=== PATIENT | male | born 1995 | race Caucasian/White ===

== ENCOUNTER 2021-04-17 16:05 | Emergency (ER) | payer SELFPAY ==
--- NOTE | 2021-04-17 16:14 | ED.GENADULT ---
HPI - General Adult General Chief complaint: Ear Stated complaint: Lt Ear Pain Time Seen by Provider: 04/17/21 16:15 Source: patient Mode of arrival: ambulatory Limitations: no limitations History of Present Illness HPI narrative: 26-year-old male patient presents to the [facility] with complaints of left ear pain for the past 2 weeks since going swimming. Patient states he has had a little bit of discharge from the ear. Patient states that it typically hurts worse when he is laying down at night. Denies fevers, body aches or chills. Related Data Allergies Allergy/AdvReac Type Severity Reaction Status Date / Time Penicillins Allergy Unknown Other Verified 04/17/21 16:22 Review of Systems Review of Systems: CONSTITUTIONAL: Denies fever, chills, or sweats. EYES: Denies visual changes, redness, or discharge. ENT: Denies rhinorrhea, congestion, sore throat, positive left ear pain CARDIOVASCULAR: Denies chest pain, palpitations, or edema. RESPIRATORY: Denies cough or dyspnea. GASTROINTESTINAL: Denies abdominal pain, nausea, vomiting, or diarrhea. GENITOURINARY: Denies dysuria or hematuria. SKIN: Denies rash or itching. MUSCULOSKELETAL: Denies back pain, joint pain, or myalgia. NEUROLOGIC: Denies headache, numbness, or weakness. PSYCHIATRIC: Denies anxiety or depression. [facility] Past Medical History Medical History (Updated 04/17/21 @ 16:37 by DORIAN Wilson) No significant past medical history Comments At the time of my signature I agree with nursing past medical history, surgical, social, and family history. There is no relevant family history pertinent to the presenting complaint. Exam Narrative: GENERAL: Well-appearing, well-nourished, and in no acute distress. HEAD: Normocephalic, atraumatic. EYES: PERRLA and EOMI. ENT: Nares clear, no rhinorrhea or epistaxis. Mucous membranes moist. The left ear does have some pus noted to the canal with irritation erythema to the sides of the canal. NECK: Supple. No lymphadenopathy CHEST: Clear to auscultation. No respiratory distress. HEART: Regular rate and rhythm. No murmur heard. Normal peripheral pulses. ABDOMEN: Soft, nontender, nondistended, normal active bowel sounds. EXTREMITIES: Normal range of motion. No edema. SKIN: Warm, dry, no rash. NEURO: No focal deficits. Alert and oriented x3. Course Vital Signs Vital signs: Vital Signs Temperature 36.9 C 04/17/21 16:15 Pulse Rate 110 H 04/17/21 16:15 Respiratory Rate 04/17/21 16:15 Blood Pressure 149/81 H 04/17/21 16:15 Pulse Oximetry 100 04/17/21 16:15 Temperature 36.9 C 04/17/21 16:15 Pulse Rate 110 H 04/17/21 16:15 Respiratory Rate 04/17/21 16:15 Blood Pressure 149/81 H 04/17/21 16:15 Pulse Oximetry 100 04/17/21 16:15 Vital signs reviewed The patient has been informed that they may have pre-hypertension or Hypertension based on a BP reading in the department. I recommend that the patient call the primary care provider listed on their discharge instructions or a physician of their choice this week to arrange follow up for further evaluation of possible pre-hypertension or Hypertension Medical Decision Making Differential Diagnosis Differential Diagnosis: Differential diagnosis: Otitis media, otitis externa, perforated TM, infection of the outer ear, foreign body or cerumen impaction, ruptured TM, acute mastoiditis, ligament otitis externa, dehydration, pneumonia, sepsis, dental or intraoral infection, TMJ dysfunction Notify patient that the left ear does have some discharge as well as concerns for infection. Discussed with him that we will discharge him home with some antibiotic eardrops for the left ear and he can continue taking Tylenol and ibuprofen as needed for pain. Vital Signs Vital Signs: Vital Signs Temperature 36.9 C 04/17/21 16:15 Pulse Rate 110 H 04/17/21 16:15 Respiratory Rate 04/17/21 16:15 Blood Pressure 149/81 H 04/17/21 16:15 Pulse Oximetry
[2021-04-17 16:15] VITALS: BP 149/81; PULSE 110; RESP 20; TEMP 36.9; O2SAT 100
== END 2021-04-17 16:36 | disposition home or self-care (01) ==
PROVIDERS: Emergency Provider Nurse Practitioner Family
DX: H60.502 Unspecified acute noninfective otitis externa, left ear (principal)
CPT/HCPCS: 99213; G0463

== ENCOUNTER 2023-04-21 14:11 | Emergency (ER) | payer OTHER, SELFPAY ==
[2023-04-21 14:22] VITALS: BP 169/93; PULSE 90; RESP 20; TEMP 36.6; O2SAT 100
--- NOTE | 2023-04-21 14:39 | ED.DENTAL ---
HPI - Dental/Oral General Chief complaint: Dental/Oral Stated complaint: tooth ache Time Seen by Provider: 04/21/23 14:30 Source: patient Mode of arrival: ambulatory Limitations: no limitations History of Present Illness HPI Narrative: Kavon is a 28-year-old male patient presenting to the clinic today with complaints of left upper dental pain times 2-3 days. He reports that he is unable to sleep at night due to pain. Currently rates his pain 10 and 10. Has a dentist appointment scheduled for Sunday. No fever or chills Related Data Allergies Allergy/AdvReac Type Severity Reaction Status Date / Time Penicillins Allergy Unknown Other Verified 04/21/23 14:25 Review of Systems Review of Systems: Pertinent positives per HPI. Patient denies any fever, chills, rash, headache, visual changes, dizziness, cough, shortness of breath, chest pain, palpitations, nausea, vomiting, diarrhea, constipation, abdominal pain, or any urinary issues. PMFSH Past Medical History Medical History No significant past medical history Comments At the time of my signature, I reviewed and agree with the nursing past medical, surgical, social, and family history. There is no relevant family history pertinent to the patient complaint. Exam Narrative: General: Well-developed, well nourished, in no apparent distress Head: Normocephalic, atraumatic Eyes: Pupils equally round and reactive to light bilaterally, EOM intact, sclera and conjunctive clear, no discharge, lids normal Ears: TMs intact and clear, ear canals clear, no drainage, grossly hearing normal. Nose: Nares patent, no discharge, no inflammation, no sinus tenderness. Mouth: Oral pharynx without lesions or masses, poor dentition, MMM. Dental pain to number 14-posterior superior alveolar block performed Neck: Supple, trachea midline, no enlargement of anterior or posterior cervical nodes, no thyroid masses or goiter palpable. Cardio: Regular rate and rhythm, s1 and s2 normal, no murmur appreciated. Resp: Clear to auscultation bilaterally, no rhonchi, rales, wheezing or rubs Course Course Emergency Course: Portions of this record may have been created with voice recognition software. Level of Care: Express Care Visit Vital Signs Vital signs: Vital Signs Temperature 36.6 C 04/21/23 14:22 Pulse Rate 90 04/21/23 14:22 Respiratory Rate 20 04/21/23 14:22 Blood Pressure 169/93 H 04/21/23 14:22 Pulse Oximetry 100 04/21/23 14:22 Oxygen Delivery Room Air 04/21/23 14:22 Temperature 36.6 C 04/21/23 14:22 Pulse Rate 90 04/21/23 14:22 Respiratory Rate 20 04/21/23 14:22 Blood Pressure 169/93 H 04/21/23 14:22 Pulse Oximetry 100 04/21/23 14:22 Oxygen Delivery Room Air 04/21/23 14:22 Vital signs reviewed Procedures Other Procedure Procedure 1: Other Procedure: Verbal consent obtained for a left posterior superior alveolar nerve block. 5 mL of lidocaine with epi was injected near the superior alveolar nerve. Patient's pain initially and this brought the pain down to 5/10. Patient tolerated procedure well. MDM - Dental/Oral MDM Narrative Medical decision making narrative: At the time of visit patient is resting on the exam table. He currently rates his pain at 10/10 currently. Offered to do a dental block and he agrees. A posterior superior alveolar nerve block was performed. Patient left with pain rating 5/10 after block. Will send in prescription for clindamycin and ibuprofen. Follow up with his dentist on Sunday as scheduled Differential Diagnosis Differential diagnosis: Likely gingival abscess, dental caries, toothache, dental abscess, fracture of tooth and aphthous ulcer Discharge Plan Discharge Clinical Impression: Toothache Patient Disposition: Home, Self-Care Condition: Stable Instructions: Antibiotic Form, Toothache (ED) Additional Ins
== END 2023-04-21 15:00 | disposition home or self-care (01) ==
PROVIDERS: Emergency Provider Nurse Practitioner Family
DX: K08.89 Other specified disorders of teeth and supporting structures (principal)
CPT/HCPCS: 64999; 99213; G0463